=== PATIENT | female | born 1945 | race Caucasian/White ===

== ENCOUNTER → 2018-12-22 | Outpatient (CLI) | payer MEDICARE ==
[~2018-12-22] MED LIST: ASPI-875 PO; CYCL10TA9 PO; TRM50T PO
== END ==
LOC: CARD 11:13
PROVIDERS: ATTEND Internal Medicine Cardiovascular Disease
DX: R07.9 Chest pain, unspecified (principal); I10 Essential (primary) hypertension; E78.5 Hyperlipidemia, unspecified; E66.9 Obesity, unspecified; I34.0 Nonrheumatic mitral (valve) insufficiency
CPT/HCPCS: 93306

== ENCOUNTER → 2018-12-26 | Outpatient (CLI) | payer MEDICARE ==
[~2018-12-26] VITALS: Ht 157.5 cm; Wt 104.3 kg
[~2018-12-26] MED LIST changes: +CATHETER FLUSH 10 ML SYR IV PRN; +REGADENOSON 0.4 MG/5 ML SYR (LEXISCAN) IV ONE
[2018-12-26 09:30] VITALS: BP 163/100
[2018-12-26 09:32] VITALS: BP 140/84
--- NOTE | 2018-12-26 14:34 | STRESS TEST ---
DATE OF SERVICE: 12/26/2018 LEXISCAN MYOVIEW STRESS TEST REPORT REFERRING PHYSICIAN: . Baseline heart rate is 55. Baseline blood pressure 163/100. Baseline EKG is sinus rhythm with no ischemic changes. In summary, the patient received 10.58 mCi of technetium-99 Myoview and the resting images were obtained. Then, the patient received 0.4 mg of Lexiscan followed by 32.3 mCi of technetium-99 Myoview. Throughout the test, there were no EKG changes. The resting and stress images were reviewed and compared in the short axis, horizontal long axis, and vertical long axis views. Review of the images showed good radiotracer uptake with no significant ischemia or infarction. SSS is 2, SDS 2, TID value 0.89. On the gated images, the left ventricle appeared to be in normal size with normal contractility. Calculated ejection fraction 69%. CONCLUSION: 1. The patient tolerated Lexiscan well. 2. No ischemia or infarction on SPECT images. 3. Normal left ventricular size with normal contractility. Calculated ejection fraction 69%. Job ID: [id number] DocumentID: [id number] Dictated Date: 12/26/2018 11:57:20 [employer] Date: 12/26/2018 14:33:53 Dictated By: LUIS ANGEL NELSON MD
== END ==
LOC: CARD 07:45
PROVIDERS: ATTEND Internal Medicine Cardiovascular Disease
DX: R07.89 Other chest pain (principal); I10 Essential (primary) hypertension; E78.5 Hyperlipidemia, unspecified; E66.9 Obesity, unspecified; Z68.41 Body mass index [BMI] 40.0-44.9, adult
CPT/HCPCS: 78452; 93017

== ENCOUNTER → 2020-01-27 | Outpatient (CLI) | payer MEDICARE ==
[~2020-01-27] MED LIST changes: -CATHETER FLUSH 10 ML SYR IV PRN; -REGADENOSON 0.4 MG/5 ML SYR (LEXISCAN) IV ONE
== END ==
LOC: LABNPT 14:13
PROVIDERS: ATTEND Family Medicine
DX: Z01.89 Encounter for other specified special examinations (principal)
CPT/HCPCS: 84443

== ENCOUNTER → 2021-01-27 | Outpatient (CLI) | payer MEDICARE ==
[~2021-01-27] VITALS: Ht 157.6 cm; Wt 109.1 kg
[~2021-01-27] MED LIST changes: +BUPIVACAINE 0.25% 30 ML (SENSORCAINE) VIAL INJ ONE; +methylPREDNISolone 40 MG/ML (DEPO MEDROL) VIAL IA ONE
--- NOTE | 2021-01-27 16:44 | Diagnostic Imaging Report ---
INDICATION: Right hip pain. The patient presents for right hip injection of steroid solution. DETAILS OF THE PROCEDURE: The patient was brought to the procedure room and placed on the table in the supine position. The right hip was prepped and draped in the usual sterile fashion. A small amount of 1% lidocaine was utilized for local anesthesia. A 20-gauge needle was advanced and placed with its tip at the femoral head/neck junction laterally. A solution of 80 mg of Depo-Medrol and 4 cc of 0.25% Marcaine was injected into the right hip intracapsular location. 10 seconds of fluoroscopic time was utilized. The needle was withdrawn and hemostasis was obtained. The patient tolerated the procedure well and left the Department in stable condition. IMPRESSION: Successful right hip injection of a steroid and Marcaine solution using fluoroscopic guidance. Dictated by: Dictated on workstation # [id number]
== END ==
LOC: RAD 13:30
PROVIDERS: ATTEND Family Medicine
DX: M16.11 Unilateral primary osteoarthritis, right hip (principal)
CPT/HCPCS: 77002

== ENCOUNTER → 2021-03-20 | Outpatient (CLI) | payer MEDICARE ==
[~2021-03-20] MED LIST changes: -BUPIVACAINE 0.25% 30 ML (SENSORCAINE) VIAL INJ ONE; -methylPREDNISolone 40 MG/ML (DEPO MEDROL) VIAL IA ONE
== END ==
LOC: CARD 11:00
PROVIDERS: ATTEND Internal Medicine Cardiovascular Disease
DX: I11.9 Hypertensive heart disease without heart failure (principal); I34.0 Nonrheumatic mitral (valve) insufficiency; I25.10 Atherosclerotic heart disease of native coronary artery without angina pectoris
CPT/HCPCS: 93306

== ENCOUNTER → 2021-05-05 | Outpatient (CLI) | payer MEDICARE ==
[~2021-05-05] MED LIST changes: +CATHETER FLUSH 10 ML SYR IV PRN; +REGADENOSON 0.4 MG/5 ML SYR (LEXISCAN) IV ONE
[2021-05-05 09:40] VITALS: BP 139/77
--- NOTE | 2021-05-07 08:42 | Cardiology Stress Test Report ---
Stress Test Report Date of Procedure/Referring: Date of Procedure: May 07, 2021 PCP Sayra Mckay MD Admitting Physician Edmond Bueno MD Indications: CP Baseline Heart Rate: 54 Baseline Blood Pressure: Blood Pressure Systolic: 139 Blood Pressure Diastolic: 77 Baseline Vitals Vital Signs Date Time Temp Pulse Resp B/P (MAP) Pulse Ox O2 Delivery O2 Flow Rate FiO2 05/05/21 09:40 54 139/77 (97) 98 Baseline EKG: Baseline EKG: NSR Summary After explaining the procedure to the patient, she signed a consent and then brought to the stress nuclear laboratory. Patient received 0.4 mg Lexiscan for stress test, ECG, heart rate and blood pressure were monitored continuously. Resting and stress dose of radio tracer were injected, imaging was acquired and reviewed in short axis, horizontal long axis and vertical long axis views. TID: 0.98 SSS: 7 SDS: 6 EF: 76 1. Patient tolerated Lexiscan well 2. Extracardiac attenuation with the left arm down affecting the quality of the images 3. Mild decrease uptake at the base of the anterior wall and anteroseptum with mild reversibility, does not correlate with coronary anatomy, most probably due to processing, no significant ischemia or infarction was noted on the study 4. Normal left ventricular size, ejection fraction 76% Copy Copies To 1: EDMOND BUENO MD, BASHAR J MD May 07, 2021 08:42
== END ==
LOC: CARD 08:30
PROVIDERS: ATTEND Internal Medicine Cardiovascular Disease
DX: I25.10 Atherosclerotic heart disease of native coronary artery without angina pectoris (principal); I10 Essential (primary) hypertension
CPT/HCPCS: 78452; 93017; A9502

== ENCOUNTER → 2022-01-01 | Outpatient (CLI) | payer MEDICARE ==
[~2022-01-01] VITALS: Ht 157.5 cm; Wt 109.1 kg
[~2022-01-01] MED LIST changes: +BUPIVACAINE 0.25% 30 ML (SENSORCAINE) VIAL INJ ONE; -CATHETER FLUSH 10 ML SYR IV PRN; -REGADENOSON 0.4 MG/5 ML SYR (LEXISCAN) IV ONE; +methylPREDNISolone 40 MG/ML (DEPO MEDROL) VIAL IM ONE; +methylPREDNISolone 80 MG/ML (DEPO MEDROL) VIAL IM ONE
--- NOTE | 2022-01-01 13:15 | Diagnostic Imaging Report ---
INDICATION: Right hip pain. Patient presents for right hip steroid injection using fluoroscopic guidance. Patient was brought to the procedure room and placed on table in the supine position. The right hip was prepped and draped in the usual sterile fashion. A small amount of 1% lidocaine was utilized for local anesthesia. A 20-gauge spinal needle was advanced and placed with the tip at the femoral head-neck junction laterally. A total of 80 mg of Depo-Medrol mixed with approximately 4 mL of 0.25% Marcaine was injected into the right hip in an intracapsular location. Needle was removed, and hemostasis was obtained. Patient tolerated the procedure well and left the department in stable condition. IMPRESSION: Successful right hip injection of steroid and Marcaine solution, using fluoroscopic guidance. Dictated by: Dictated on workstation # [id number]
== END ==
LOC: RAD 10:42
PROVIDERS: ATTEND Family Medicine
DX: M16.11 Unilateral primary osteoarthritis, right hip (principal)
CPT/HCPCS: 20610; 77002